=== PATIENT | male | born 1955 | race African-American/Black ===

== ENCOUNTER 2024-02-01 10:40 | Emergency (ER) | payer BC, MEDICAID, OTHER ==
[~2024-02-01] VITALS: Ht 175.3 cm; Wt 68.0 kg
[~2024-02-01 10:40] MED LIST: CHOL20006 PO; HYDR100T11 PO; HYDR25TA PO; LISI40TA13 PO; MELO-106 PO; OMEP20CA4 PO
[2024-02-01 10:43] VITALS: BP 95/55; TEMP 98.7; O2SAT 99
[2024-02-01 10:48] VITALS: PULSE 97; RESP 18; O2SAT 55
[2024-02-01] MEDS: ACETAMINOPHEN 325MG TABLET PO ONE (13:38)
[2024-02-01] MEDS ORDERED: SULF1TAB48 MT (14:31)
== END 2024-02-01 14:33 | disposition home or self-care (01) ==
LOC: ER 10:56
DX: S81.802A Unspecified open wound, left lower leg, initial encounter (principal); I10 Essential (primary) hypertension; E11.9 Type 2 diabetes mellitus without complications; Z79.899 Other long term (current) drug therapy; W01.0XXA Fall on same level from slipping, tripping and stumbling without subsequent striking against object, initial encounter; Y93.89 Activity, other specified; Y92.89 Other specified places as the place of occurrence of the external cause; Y99.8 Other external cause status
CPT/HCPCS: 73560; 73590; 73610; 99284; Z7610